=== PATIENT | female | born 1980 | race Caucasian/White ===

== ENCOUNTER 2018-11-13 08:07 | Outpatient (CLI) | payer OTHER ==
--- NOTE | 2018-11-13 09:42 | ULT ---
SONOGRAM ABDOMEN COMPLETE: HISTORY: Diarrhea. Abdominal pain. FINDINGS: Gallbladder has a normal appearance without evidence of stones. The common duct is 0.5 cm. Liver un remarkable without focal mass or intrahepatic biliary dilatation. No free fluid. The spleen, kidney s, and visualized portions of the abdominal aorta, IVC, and pancreas are unremarkable. IMPRESSION: No significant abnormalities are demonstrated. POS: [facility]
== END 2018-11-13 08:08 | disposition home or self-care (01) ==
LOC: SCSULT 08:07
PROVIDERS: ATTEND Internal Medicine Gastroenterology
DX: K52.9 Noninfective gastroenteritis and colitis, unspecified (principal); R63.4 Abnormal weight loss; R06.02 Shortness of breath
CPT/HCPCS: 76700; 87045; 87046; 87177; 87324; 87427; 87449